=== PATIENT | female | born 1990 | race Caucasian/White ===

== ENCOUNTER → 2017-05-22 13:19 | Observation (INO) ==
[2017-05-22 13:00] LABS: Amphetamine Screen,Urine Negative ng/mL (Cutoff=1000); Barbiturate Screen,Urine Negative ng/mL (Cutoff=200); Benzodiazepines Screen,Urine Negative ng/mL (Cutoff=200); Cannabinoid Screen,Urine Negative ng/mL (Cutoff = 50); Cocaine Screen,Urine Negative ng/mL (Cutoff= 300); Opiate Screen,Urine Negative ng/mL (Cutoff=300); Phencyclidine Screen,Urine Negative ng/mL (Cutoff=25)
--- NOTE | 2017-05-22 13:02 | Discharge Summary ---
Date of Encounter: 05/22/17 Time of Encounter: 13:01 - Discharge Diagnosis (1) Uterine contractions Priority: Primary Status: Acute Comments: Patient came to L&D due to concerns for her water breaking and having contractions. She states that around 0300 today she felt a gush of fluid that soaked her underwear, notices leaking when coughing or moving. She also reports intermittent contractions starting around 1200 today. She states that she has some vaginal bleeding when she felt like she passed her mucus plug. Denies any other bleeding. Denies vaginal discharge. Reports good movements. Negative nitrazine test Negative for ferning on microscopy heart rate baseline 125 and reactive. Patient does not appear to be in labor at this time Patient expressed she would like to be induced however she does not meet criteria for induction and is less than 39 weeks. this was explained to patient. Pt states she is going to go home and try castor oil, CHETM discussed this is not recommended. Patient will be discharged home with labor and when to return to triage precautions. Pt verbalizes understanding. (2) 38 weeks gestation of Priority: Secondary Status: Acute Comments: patient is 38w2d. patient is not ruptured. Does not meet criteria for induction at this time due to the patient being less than 39 weeks. (3) Encounter for suspected PROM, with rupture of membranes not found Priority: Primary Status: Acute Comments: Negative fern, negative nitrazine. - Discharge Medications Home Medications: No.40/Iron/FA/Dha [Cvs Multi + Dha Sftgl] 1 each PO DAILY [History] Allergies/Adverse Reactions: 3 Allergy/AdvReac Type Severity Reaction Status Date / Time No Known Allergies Allergy Verified 01/30/17 13:55 Date of admission: 05/22/17 12:10 Discharging clinician: Carl Rosario Anticipated date of discharge: 05/22/17 - Patient Status Disposition: Home, Self-Care Condition: Good Functional capacity at discharge: independent ambulation Overall status at discharge: patient is back to baseline - Discharge Instructions Follow Up With: Stella Sanchez CNM [Non-Partnered Physician] - - Diet and Activity Activity: resume usual activities as tolerated Diet: regular diet 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 - Neurological Exam Neurological exam: alert, oriented X3 - VTE Reasons for not Prescribing Prophylaxis: Treatment not Indicated - Low risk for VTE
== END | disposition home or self-care (01) ==
LOC: 1NENULAB
PROVIDERS: ADMIT Advanced Practice Midwife; ATTEND Advanced Practice Midwife

== ENCOUNTER 2017-05-28 03:26 | Inpatient (IN) ==
[2017-05-28] MEDS ORDERED: Famotidine 20 MG/2 ML VIAL IVP PRN (03:42)
[2017-05-28] MEDS ORDERED: Naloxone 0.4 MG/ML INJ IVP PRN (03:42)
[2017-05-28] MEDS ORDERED: Metoclopramide 10 MG/2 ML VIAL IVP PRN (03:42)
[2017-05-28] MEDS ORDERED: Ringers Solution, Lactated 1,000 ML IVC SCH (03:45)
[2017-05-28 04:03] LABS: Basophils # 0.1 K/mcL (0.0-0.2); Basophils % 0.3 %; Eosinophils # 0.1 K/mcL (0.0-0.6); Eosinophils % 0.9 %; Hematocrit 36.5 % (35.3-44.9); Hemoglobin 11.9 g/dL (11.5-15.4); Immature Granulocytes % 0.9 % (0-4); Lymphocytes # 3.2 K/mcL (0.6-4.6); Mean Corpuscular HGB Conc 32.6 g/dL (31.6-35.5); Mean Corpuscular Hemoglobin 29.2 pg (28.0-33.3); Mean Corpuscular Volume 89.5 fL (83.0-100.0); Mean Platelet Volume 9.9 fL (9.4-12.4); Monocytes # 1.3 K/mcL (0.0-1.3); Monocytes % 8.3 %; Neutrophils # 11.1 K/mcL (1.6-8.9); Platelet Count 369 K/mcL (140-400); Red Blood Count 4.08 M/mcL (3.82-4.97); Red Cell Distribution Width 13.5 % (11.5-14.5); Segmented Neutrophils % 69.6 %
[2017-05-28 04:06] LABS: Amphetamine Screen,Urine Negative ng/mL (Cutoff=1000); Barbiturate Screen,Urine Negative ng/mL (Cutoff=200); Benzodiazepines Screen,Urine Negative ng/mL (Cutoff=200); Cannabinoid Screen,Urine Negative ng/mL (Cutoff = 50); Cocaine Screen,Urine Negative ng/mL (Cutoff= 300); Opiate Screen,Urine Negative ng/mL (Cutoff=300); Phencyclidine Screen,Urine Negative ng/mL (Cutoff=25)
[2017-05-28] MEDS ORDERED: Epidural Premix (fent/bupiv) 110 ML EP ONE ×2 (04:14→09:08)
[2017-05-28] MEDS ORDERED: EPHEDrine 50 MG/ML VIAL ONE (04:49)
--- NOTE | 2017-05-28 04:54 | OB/GYN History & Physical ---
Date of Encounter: 05/28/17 Time of Encounter: 04:51 Assessment and Plan (1) Uterine contractions Current visit: Yes Status: Acute Regular uterine contractions. No LOF. She was scheduled to be induced later today. monitoring - baseline 125 with variability and accels - Category I LR 125 ml/hr Cervix 4-5 cm per RN Karis at 0421 Expect (2) 39 weeks gestation of Current visit: Yes Status: Acute (3) Tobacco use during Current visit: Yes Status: Acute Pt admits to smoking 1.5 PPD Qualifiers: Trimester: unspecified trimester Qualified Code(s): O99.330 - Smoking ( tobacco) complicating , unspecified trimester History of Present Illness Chief complaint: Regular Contractions HPI: Ms. Valenzuela is a 27 year old female at 39w1d who presents to L&D for regular contractions at home. She began opal yesterday morning becoming more regular and more intense through the afternoon and overnight. She reports blood show around 2-3PM yesterday. She reports feeling movement. Denies loss of fluid. She reports there have not been any complications during this . She does admit to smoking 1.5 PPD, but no other drug use. She does have a history of asthma and kidney stones. She admits to some lower back pain with sciatica, but denies other concerns or symptoms. Pt states she sees a kidney doctor during for kidney failure with last , BMP at suppressed WNL, Pt states she was told by MD she had no further issues and he would follow up after . Blood type O positive GBS negative Rubella equivocal Varicella Immune All other serologies negative Past Med Surg Social Fam HX - Past Medical History Medical history: asthma, renal disease (sees credit collections analyst per pt) Psychiatric history: no psych history - Social History Smoking Status: Current every day smoker Packs per day: pack and a half a day Smokeless Tobacco Status: No Alcohol use: none Drug use: none - Family History Mother Living Status: Still Living Hx Family Endocrine Disorder: Yes (DM) Obstetrical History - Pregnancies : 3 Para: 2 Term: 2 : 0 Ab's: 0 Livin - History/Complications History/Complications: Tobacco Use during Medications and Allergies No.40/Iron/FA/Dha [Cvs Multi + Dha Sftgl] 1 each PO DAILY [History] 3 Allergy/AdvReac Type Severity Reaction Status Date / Time No Known Allergies Allergy Verified 05/28/17 03:48 Review of System OB All systems PM: reviewed and no additional remarkable complaints except as stated Exam - Constitutional Constitutional: well developed, well nourished, no acute distress, average body habitus - HEENT HEENT: Normocephaly, Mucus Membranes Moist - Lungs Respiratory exam: CTAB - Cardiovascular Cardiovascular exam: RRR, +S1, +S2 - Abdomen Abdomen: Present: bowel sounds normal, non tender - Extremities Extremities exam: normal capillary refill, normal inspection - Vulva Vulva: bilateral: normal - Vagina Vagina: Present: normal moisture - Cervix Dilation: 5 (per RN) - Uterus Uterus exam: Present: normal size, normal contour - Anus/Rectum Anus/Rectum: Present: normal perianal skin - Comments Comments: FHT baseline 125 with variability and accels - Category I Results Result Diagrams: 05/28/17 03:35 Abnormal lab results WBC 16.0 K/mcL (4.3-11.1) H 05/28/17 03:35 Neutrophils # 11.1 K/mcL (1.6-8.9) H 05/28/17 03:35 All other labs normal. - VTE Reasons for not Prescribing Prophylaxis: Treatment not Indicated - Low risk for VTE
--- NOTE | 2017-05-28 04:57 | Anesthesia Procedures ---
Date of Encounter: 05/28/17 Time of Encounter: 04:21 Procedures: Anesthesia - Epidural/Spinal Patient ID/Chart reviewed: Yes Patient examined: Yes OB Eval: Gestational age: term OB Eval: : 3 OB Eval: Hx Para: 2 OB Eval: Dilated at (cm): 5 OB Eval: Contractions: Non-stressed pattern Consent Obtained: Yes Supplemental Oxygen: None/Room Air Site Prep: Sterile prep and drape, 0.5% Chlorhexidine/Alcohol Patient position: upright Local Anesthetic: Lidocaine 1% Amount of Local Anesthetic used: 2 Touhy Needle Gauge: 18 Touhy Needle Depth (cm): 7 Catheter Depth at Skin (cm): 11 Test Dose (1.5% Lido + Epi): Volume given (mls): 3 Test Dose Result: Negative Loading Dose: Other: 12ml from solution Loading Dose Administered: Thru Catheter Infusion Med: 0.125% Bupivacaine w/ 2 mcg/ml Fentanyl Infusion Rate (mls/hr): [address]: Tegaderm, Tape Interspace Used: L3-L4 Loss of Resistance (CHRISTINA): Yes (saline) Blood: No CSF: No Paresthesia: No Procedure: vss though out procedure, FHR stable per RN's
--- NOTE | 2017-05-28 05:00 | Anesthesia Evaluation PreOp ---
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 (chronic back pain with left leg radiculopathy (sciatic)) Other Medical History: Renal (questionable renal artery stenosis, being followed Q month, was told everything was fine with this preg.) Anesthesia History: No Prior Anesthetic Complications, Past Anesthesia : Yes Alcohol Use: none Drug use: none Medications and Allergies No.40/Iron/FA/Dha [Cvs Multi + Dha Sftgl] 1 each PO DAILY [History] 3 Allergy/AdvReac Type Severity Reaction Status Date / Time No Known Allergies Allergy Verified 05/28/17 03:48 Anesthesia Results - Labs 05/28/17 03:35 Anesthesia Exam - HEENT Pupil (Motor): Pupils equal Mallampati: II Teeth: Poor dentition Oral Opening: Greater than 3 - PHOTOGRAPHIC PROCESS SCREEN MAKER LOC: Oriented PHOTOGRAPHIC PROCESS SCREEN MAKER Motor: Normal RUE, Normal LUE, Normal RLE, Normal LLE, Normal Face PHOTOGRAPHIC PROCESS SCREEN MAKER Sensory: Normal: RUE, LUE, RLE, LLE, Face - Cardiac Rhythm: Regular Murmur: None - Pulmonary Breath Sounds: bilateral Rhonchi Respiratory Effort: Symmetrical Anesthesia Assess/Plan ASA Score: 2 (patient informed about concerns and risks..wishes to continue.) Modified Lavelle Scale for Level of Consciousness: Cooperative, oriented, and tranquil Anesthetic Plan: General, Regional Monitoring Plan: Standard Monitors
--- NOTE | 2017-05-28 05:48 | OB Labor Progress Note ---
Date of Encounter: 05/28/17 Time of Encounter: 05:47 Labor Progress Note - Subjective Subjective: Resting comfortable with epidural - Cervix Cervix: 5/80/-2 - Heart Tones Heart Tones: 130/moderate/+accels/-decels - [place]: adjusted - Interventions Interventions: AROM for small amount clear fluid - Plan Plan: Continue expectant management, anticipate
[2017-05-28] MEDS ORDERED: Oxytocin 20 units/ LR 1000 mL 20 UNIT/1,000 ML BAG IVC SCH ×2 (07:00→11:58)
--- NOTE | 2017-05-28 10:05 | OB/GYN Procedure Note ---
Delivery - Delivery Date: 05/28/17 Provider: Xiomara Quinteros Intrapartum events: none Delivery augmentation: rupture of membranes Delivery monitor: external FHT, external uterine Anesthesia: epidural Estimated Blood Loss: 300 - Infant (s) A Infant Delivery Date: 05/28/17 Delivery Time: 09:33 Presentation: vertex Position: OA Route of delivery: Gender: Female Viability: Viable Pounds: 6 Ounces: 9 Weight Gram: 2975 kg at 1 minute: 8 at 5 mins: 9 Shoulder Dystocia: not encountered Specimens collected: cord blood Placenta: spontaneous Cord: 3 umbilical vessels - Repair Episiotomy: none Laceration Description: None - Complications Delivery complications: none Delivery comments: Admitted in labor, AROM and pitocin for augmentation, progressed to complete, Maternal bearing down efforts to of liveborn girl, vertex delivered OA, body and shoulders easily followed, no nuchal cord or shoulder dystocia encountered. Vigorous placed on maternal abdomen. APGARS 8/9. Placenta delivered spontaneous, complete on inspection, pitocin started per policy fundus massaged until firm. EBL 300. Perineum intact. Mother and left stable and bonding on labor and delivery. - Disposition Mom disposition: stable in LDR disposition: stable in LDR
[2017-05-28] MEDS ORDERED: Measles/Mumps/Rubella Vacc 0.5 ML VIAL SQ PRN (11:58)
[2017-05-28] MEDS ORDERED: Acetaminophen 325 MG TABLET PO PRN (11:58)
[2017-05-28] MEDS ORDERED: Benzocaine/Menthol 56 GM AEROSOL SPRAY TP PRN (11:58)
[2017-05-28] MEDS ORDERED: Lanolin 7 G OINT...G. TP PRN (11:58)
[2017-05-28] MEDS: GuaiFENesin Liq 200 MG/10 ML UDC PO PRN ×2 (14:51→23:36)
[2017-05-28] MEDS: Ibuprofen 600 MG TABLET PO PRN (14:51)
[2017-05-29] MEDS: Ibuprofen 600 MG TABLET PO PRN (03:56)
[2017-05-29 06:20] LABS: Basophils # 0.1 K/mcL (0.0-0.2); Basophils % 0.5 %; Eosinophils # 0.2 K/mcL (0.0-0.6); Eosinophils % 1.6 %; Hematocrit 32.9 % (35.3-44.9); Hemoglobin 10.7 g/dL (11.5-15.4); Immature Granulocytes % 1.9 % (0-4); Lymphocytes # 2.4 K/mcL (0.6-4.6); Lymphocytes % 19.1 %; Mean Corpuscular HGB Conc 32.5 g/dL (31.6-35.5); Mean Corpuscular Hemoglobin 29.2 pg (28.0-33.3); Mean Corpuscular Volume 89.9 fL (83.0-100.0); Mean Platelet Volume 10.1 fL (9.4-12.4); Monocytes % 8.2 %; Neutrophils # 8.6 K/mcL (1.6-8.9); Nucleated Red Blood Cells 0.4 /100 WBC (0); Platelet Count 283 K/mcL (140-400); Red Blood Count 3.66 M/mcL (3.82-4.97); Red Cell Distribution Width 13.5 % (11.5-14.5); Segmented Neutrophils % 68.7 %
--- NOTE | 2017-05-29 07:46 | Discharge Summary ---
Date of Encounter: 05/29/17 Time of Encounter: 07:44 - Discharge Diagnosis (1) Uterine contractions Priority: Primary Status: Acute (2) 39 weeks gestation of Priority: Primary Status: Acute (3) Tobacco use during Priority: Secondary Status: Acute Qualifiers: Trimester: unspecified trimester Qualified Code(s): O99.330 - Smoking ( tobacco) complicating , unspecified trimester (4) Vaginal delivery Priority: Primary Status: Acute Comments: Pt meeting all milestones, pain well managed on po pain medication, bleeding has decreased, voiding without difficulty, and desires discharge. Pt complains of cough, will continue robitussin - Discharge Medications Prescriptions: Ibuprofen [Motrin] 600 mg PO Q6HR PRN #60 tablet PRN Reason: Cramping Docusate [Colace] 100 mg PO BID #30 capsule Ferrous Sulfate 325 mg PO DAILY #30 tablet Home Medications: No.40/Iron/FA/Dha [Cvs Multi-Dha Softgel] 1 each PO DAILY [History] Acetaminophen [Tylenol] 650 mg PO Q6HR PRN tablet 05/29/17 [Rx] Benzocaine/Menthol [place] [Dermoplast [place]] 1 appl TP QID PRN aerosol 05/29/17 [Rx] Docusate [Colace] 100 mg PO BID #30 capsule 05/29/17 [Rx] Ferrous Sulfate 325 mg PO DAILY #30 tablet 05/29/17 [Rx] GuaiFENesin Liq [Robitussin Liq] 200 mg PO Q6HR PRN udc 05/29/17 [Rx] Ibuprofen [Motrin] 600 mg PO Q6HR PRN #60 tablet 05/29/17 [Rx] Lanolin [Lansinoh] 1 appl TP QID PRN oint...g. 05/29/17 [Rx] Vit/FA 1 each PO DAILY tablet 05/29/17 [Rx] Allergies/Adverse Reactions: 3 Allergy/AdvReac Type Severity Reaction Status Date / Time No Known Allergies Allergy Verified 05/28/17 03:48 Data Procedures and tests throughout hospitalization: Laboratory Tests 05/28/17 05/28/17 05/29/17 03:35 03:35 06:12 WBC 16.0 H 12.5 H RBC 4.08 3.66 L Hgb 11.9 10.7 L Hct 36.5 32.9 L MCV 89.5 89.9 MCH 29.2 29.2 MCHC 32.6 32.5 RDW 13.5 13.5 Plt Count 369 283 MPV 9.9 10.1 Immature Gran % 0.9 1.9 Seg Neutrophils % 69.6 68.7 Lymphocytes % 20.0 19.1 Monocytes % 8.3 8.2 Eosinophils % 0.9 1.6 Basophils % 0.3 0.5 Neutrophils # 11.1 H 8.6 Lymphocytes # 3.2 2.4 Monocytes # 1.3 1.0 Eosinophils # 0.1 0.2 Basophils # 0.1 0.1 Nucleated RBCs/100 WBC 0.4 H Urine Opiates Screen Negative Ur Barbiturates Screen Negative Ur Phencyclidine Scrn Negative Ur Amphetamines Screen Negative U Benzodiazepines Scrn Negative Urine Cocaine Screen Negative U Marijuana (THC) Screen Negative Labs on day of discharge: Labs from last 24 hours 05/29/17 06:12 WBC 12.5 H RBC 3.66 L Hgb 10.7 L Hct 32.9 L MCV 89.9 MCH 29.2 MCHC 32.5 RDW 13.5 Plt Count 283 MPV 10.1 Immature Gran % 1.9 Seg Neutrophils % 68.7 Lymphocytes % 19.1 Monocytes % 8.2 Eosinophils % 1.6 Basophils % 0.5 Neutrophils # 8.6 Lymphocytes # 2.4 Monocytes # 1.0 Eosinophils # 0.2 Basophils # 0.1 Nucleated RBCs/100 WBC 0.4 H Date of admission: 05/28/17 03:26 Primary care physician: PCP NONE Consults: 05/28/17 11:58 Consult to Marketing Communication Manager [CONS] Routine Comment: Vaginal delivery, consult needed Discharging clinician: Xiomara Quinteros Anticipated date of discharge: 05/29/17 - Patient Status Disposition: Home, Self-Care Condition: Good Functional capacity at discharge: independent ambulation Overall status at discharge: patient is back to baseline - Discharge Instructions Follow Up With: NONE,PCP [Primary Care Provider] - Xiomara Quinteros CNM [Advanced Practice Nurse] - - Diet and Activity Activity: resume usual activities as tolerated Diet: regular diet Hospital Course Reason for admission: active labor Delivery: Episiotomy: none Laceration: none Other procedures: none complications: none Discharge diagnosis: IUP at term delivered baby: female Hospital course: Delivery - Delivery Date: 05/28/17 Provider: Xiomara Quinteros Intrapartum events: none Delivery augmentation: rupture of membranes Delivery monitor: external FHT, external uterine Anesthesia: epidural Estimated Blood Loss: 300 - Infant (s) Infant A Infant Delivery Date: 05/28/17 Delivery Time: 09:33 Presentation: vertex Position: OA Route of delivery: Gender: Female Viability: Viable Pounds: 6 Ounces: 9 Weight Gram: 2975 kg at 1 minute: 8 at 5 mins: 9 Shoulder Dystocia: not encountered Specimens collected: cord blood Placenta: spontaneous Cord: 3 umbilical vessels - Repair Episiotomy: none Laceration Description: None - Complications Delivery complications: none Delivery comments: Admitted in labor, AROM and pitocin for augmentation, progressed to complete, Maternal bearing down efforts to of liveborn girl, vertex delivered OA, body and shoulders easily followed, no nuchal cord or shoulder dystocia encountered. Vigorous infant placed on maternal abdomen. APGARS 8/9. Placenta delivered spontaneous, complete on inspection, pitocin started per policy fundus massaged until firm. EBL 300. Perineum intact. Mother and left stable and bonding on labor and delivery. - Disposition Mom disposition: stable in PP and appropriate for discharge Time spent discussing smoking cessation with patient: 3 to 10 minutes Time Attestation: Total time spent providing and/or coordinating discharge services: Time Spent: Less than 30 minutes Exam - Constitutional Vitals: Temp Pulse Resp BP Pulse Ox 97.4 F L 65 16 128/93 97 05/29/17 03:40 05/29/17 03:40 05/29/17 03:40 05/29/17 03:40 05/29/17 03:40 General appearance IM: A&O X 3 - Respiratory Respiratory exam: Present: CTAB - Cardiovascular Cardiovascular exam IM: Present: RRR - GI/Abdominal GI/Abdominal exam IM: normal bowel sounds, soft - Uterine Tone: Firm Uterus Position: At Umbilicus - Extremities Exam Extremities exam IM: Present: normal capillary refill, normal inspection - Neurological Exam Neurological exam: normal gait, oriented X3 - Psychiatric Additional comments: Reports good mood.
[2017-05-29 07:57] VITALS: BP 119/84
[2017-05-29] MEDS ORDERED: Prenatal Vit/FA 1 EACH TABLET PO SCH (09:00)
== END 2017-05-29 10:47 | disposition home or self-care (01) | DRG 560 ==
LOC: 1NENULAB 03:26 → 1NENUOBS 11:50
PROVIDERS: ATTEND Advanced Practice Midwife